=== PATIENT | female | born 1990 ===

== ENCOUNTER 2016-08-12 10:34 | Emergency (ER) | payer MEDICAID ==
[2016-08-12 11:13] VITALS: RESP 18
--- NOTE | 2016-08-12 12:44 | C.PDOC ---
History Of Present Illness 26 year old patient presents to the ED complaining of a fever since today. Patient also complains of a mild cough with yellow-alaina sputum. Patient had 1 episode of vomiting in the ED and felt better afterwards. Patient has 2 sick children at home with similar symptoms. Patient denies any abdominal pain or diarrhea. Time Seen by Provider: 08/12/16 11:29 Chief Complaint (Nursing): Cough, Cold, Congestion History Per: Patient History/Exam Limitations: no limitations Onset/Duration Of Symptoms: Hrs (earlier today) Current Symptoms Are (Timing): Still Present Sick Contacts (Context): Family Member(s) (2 children) Associated Symptoms: Fever, Cough, Nausea, Vomiting Ear Symptoms: Bilateral: None Severity: Mild Pain Scale Rating Of: 3 Recent travel outside of the [place]: No Past Medical History Reviewed: Historical Data, Nursing Documentation, Vital Signs Vital Signs: Last Vital Signs Temp 100.8 F H 08/12/16 11:07 Pulse 121 H 08/12/16 11:07 Resp 18 08/12/16 11:07 BP 113/79 08/12/16 11:07 Pulse Ox 100 08/12/16 12:46 - Medical History PMH: Anemia, Anxiety, Depression, HTN - [facility]YCHOTHERAPY (04/24/15) Family History: States: Unknown Family Hx - Social History Hx Tobacco Use: No Hx Alcohol Use: No Hx Substance Use: No - Immunization History Hx Tetanus Toxoid Vaccination: No Hx Influenza Vaccination: No Hx Pneumococcal Vaccination: No Review Of Systems Except As Marked, All Systems Reviewed And Found Negative. Constitutional: Positive for: Fever Respiratory: Positive for: Cough Gastrointestinal: Positive for: Nausea, Vomiting. Negative for: Abdominal Pain , Diarrhea Physical Exam - Physical Exam Appears: Non-toxic, No Acute Distress Skin: Warm, Dry Head: Atraumatic, Normacephalic Eye(s): bilateral: PERRL, EOMI Ear(s): Bilateral: Normal Nose: Normal Throat: Normal, No Erythema, No Exudate Neck: Normal ROM, Supple Chest: Symmetrical Cardiovascular: Rhythm Regular Respiratory: Normal Breath Sounds, No Rales, No Rhonchi, No Wheezing Gastrointestinal/Abdominal: Soft, No Tenderness Back: Normal Inspection Extremity: Normal ROM Neurological/Psych: Oriented x3 Gait: Steady ED Course And Treatment O2 Sat by Pulse Oximetry: 100 (room air) Pulse Ox Interpretation: Normal Medical Decision Making Medical Decision Making: pt feeling much better., no nausea, no abdominal pain. will d/c with supportive care. Disposition Counseled Patient/Family Regarding: Diagnosis, Need For Followup - Disposition Disposition: HOME/ ROUTINE Disposition Time: 12:48 Condition: IMPROVED Additional Instructions: Stay well hydrated. Tylenol or Motrin for fever. Folllow up with your PMD in a few days. Return to ER for any worsening symptoms. Instructions: Viral Syndrome (ED) Forms: General Discharge Instructions - Clinical Impression Clinical Impression: Viral disease - PA / LEATHER ETCHER / Resident Statement MD/DO has reviewed & agrees with the documentation as recorded. - Scribe Statement The provider has reviewed the documentation as recorded by the Scribe Lore Landeros All medical record entries made by the Robbinibharpreet were at my direction and personally dictated by me. I have reviewed the chart and agree that the record accurately reflects my personal performance of the history, physical exam, medical decision making, and the department course for this patient. I have also personally directed, reviewed, and agree with the discharge instructions and disposition.
[2016-08-12 12:58] VITALS: BP 142/79; PULSE 101; TEMP 100.6; O2SAT 97
== END 2016-08-12 12:58 | disposition home or self-care (01) ==
LOC: C.ER 10:34
DX: B34.9 Viral infection, unspecified (principal)

== ENCOUNTER 2018-05-02 19:13 | Emergency (ER) | payer MEDICAID ==
[2018-05-02 19:37] VITALS: RESP 18
--- NOTE | 2018-05-02 20:50 | RAD ---
HISTORY: cough, fever COMPARISON: None available. TECHNIQUE: Chest PA and lateral FINDINGS: Examination limited by habitus. LUNGS: No focal consolidation. Please note that chest x-ray has limited sensitivity for the detection of pulmonary masses. PLEURA: No significant pleural effusion identified. No definite pneumothorax . CARDIOVASCULAR: Heart size appears within normal limits. No atherosclerotic calcification present. OSSEOUS STRUCTURES: No acute osseous abnormality identified. VISUALIZED UPPER ABDOMEN: Unremarkable. OTHER FINDINGS: None. IMPRESSION: No focal consolidation.
--- NOTE | 2018-05-02 20:54 | C.PDOC ---
History Of Present Illness 27 year old female presents to the emergency department with complaints of cough, chest congestion, and fever which began today. Patient states that she was seen by her PMD yesterday and received a flu vaccination. However, she reports an intermittent cough that she has had for the last 6 months. Patient states that she has finished antibiotic cough medications with no relief. She denies recent travel and shortness of breath. Time Seen by Provider: 05/02/18 19:41 Chief Complaint (Nursing): Flu-like Symptoms History Per: Patient History/Exam Limitations: no limitations Onset/Duration Of Symptoms: Days (1) Current Symptoms Are (Timing): Still Present Associated Symptoms: Fever, Cough, Other (chest congestion) Past Medical History Vital Signs: Last Vital Signs Temp 101.3 F H 05/02/18 19:35 Pulse 118 H 05/02/18 19:35 Resp 18 05/02/18 19:35 BP 142/87 05/02/18 19:35 Pulse Ox 98 05/02/18 19:35 - Medical History PMH: Anemia, Anxiety, Depression, HTN Denies: Diabetes, Hepatitis, HIV, Chronic Kidney Disease, Seizures, Sexually Transmitted Disease Surgical History: No Surg Hx - [facility] GROUP [facility]YCHOTHERAPY (04/24/15) Family History: States: Unknown Family Hx - Social History Hx Tobacco Use: No Hx Alcohol Use: No Hx Substance Use: No - Immunization History Hx Tetanus Toxoid Vaccination: No Hx Influenza Vaccination: No Hx Pneumococcal Vaccination: No Review Of Systems Except As Marked, All Systems Reviewed And Found Negative. Constitutional: Positive for: Fever Respiratory: Positive for: Cough, Other (chest congestion) Physical Exam - Physical Exam Appears: Non-toxic, No Acute Distress Skin: Normal Color, Warm, Dry Head: Atraumatic, Normacephalic Eye(s): bilateral: Normal Inspection, PERRL, EOMI Nose: Normal Oral Mucosa: Moist Throat: Normal, No Erythema, No Exudate Neck: Normal, Supple Chest: Symmetrical, No Tenderness Cardiovascular: Rhythm Regular, No Murmur Respiratory: Normal Breath Sounds, No Rales, No Rhonchi, No Wheezing Gastrointestinal/Abdominal: Soft, No Tenderness Extremity: Normal ROM Neurological/Psych: Oriented x3, Normal Speech ED Course And Treatment O2 Sat by Pulse Oximetry: 98 (RA) Pulse Ox Interpretation: Normal - Other Rad CXR X-Ray: Viewed By Me, Read By Radiologist Interpretation: IMPRESSION: No focal consolidation. Progress Note: Plan: Motrin 600mg PO. CXR Disposition Counseled Patient/Family Regarding: Diagnosis, Need For Followup - Disposition Referrals: Sav Martinez MD [Medical Doctor] - Disposition: HOME/ ROUTINE Disposition Time: 21:40 Condition: STABLE Additional Instructions: Please follow up with PMD Take medications as directed ( continue nasal spray and OTC decongestants) Tylenol or advil for fever Return to ER if worse Instructions: Viral Upper Respiratory Infection, Adult (DC) Forms: [employer] (Pakistani) - Clinical Impression Clinical Impression: URI (upper respiratory infection) - PA / SPRINKLER INSPECTOR / Resident Statement MD/DO has reviewed & agrees with the documentation as recorded. - Scribe Statement The provider has reviewed the documentation as recorded by the Scribe (William Whaley) All medical record entries made by the Scribe were at my direction and personally dictated by me. I have reviewed the chart and agree that the record accurately reflects my personal performance of the history, physical exam, medical decision making, and the department course for this patient. I have also personally directed, reviewed, and agree with the discharge instructions and disposition.
[2018-05-02 21:48] VITALS: BP 133/84; PULSE 111; TEMP 98.7
[2018-05-03 04:51] VITALS: O2SAT 98
== END 2018-05-02 21:48 | disposition home or self-care (01) ==
LOC: C.ER 19:13
DX: J06.9 Acute upper respiratory infection, unspecified (principal); I10 Essential (primary) hypertension